=== PATIENT | female | born 1935 | race Caucasian/White ===

== ENCOUNTER 2020-03-21 10:33 | Outpatient (NON) | payer MEDICARE, OTHER, SELFPAY ==
[2020-03-21 11:10] LABS: Alanine Aminotransferase 10 U/L (4-35); Alkaline Phosphatase 64 U/L (38-126); Anion Gap 6 mmol/L (8-16); Aspartate Amino Transferase 26 U/L (14-36); Bilirubin,Total 0.5 mg/dL (0.2-1.3); Blood Urea Nitrogen 23 mg/dL (7-17); Calcium 9.6 mg/dL (8.4-10.2); Carbon Dioxide 31 mmol/L (22-30); Chloride 103 mmol/L (98-107); Cholesterol 179 mg/dL (0-200); Estimated Glomerular Filt Rate 60; Glucose 94 mg/dL (65-105); HDL Direct 35 mg/dL; Potassium 4.3 mmol/L (3.4-5.0); Sodium 140 mmol/L (137-145); Triglycerides 182 mg/dL (<150)
[2020-03-21 11:21] LABS: LDL Cholesterol Direct 102 mg/dL
== END 2020-03-21 10:34 ==
PROVIDERS: PCP Family Medicine; Visit Provider Family Medicine
DX: E78.2 Mixed hyperlipidemia (principal); I10 Essential (primary) hypertension
CPT/HCPCS: 80053; 80061